=== PATIENT | female | born 1950 | race African-American/Black ===

== ENCOUNTER 2018-11-30 16:12 | Emergency (ER) | payer OTHER ==
[~2018-11-30] VITALS: Ht 172.7 cm; Wt 72.6 kg
[~2018-11-30 16:12] MED LIST: ACETAMINOPHEN-120 ML PO; AZITHROMYCIN 2250 MG PO; DIOVAN40 MG PO; LEXAPRO 10 MG T10 MG PO; PREVACID15 MG PO; PROAIR HFA8.5 GM IH; SYNTHROID25 MCG PO
[2018-11-30] MEDS ORDERED: NORFLEX100 MG PO (17:41)
[2018-11-30] MEDS ORDERED: NORCO 5-325 TA1 EACH PO (17:41)
[2018-11-30] MEDS ORDERED: SENNA-DOCUSATE1 EAC1 PO (17:41)
[2018-11-30 17:43] VITALS: BP 123/82
[2018-11-30] MEDS ORDERED: IBUPROFEN 600600 M1 PO (17:43)
== END 2018-11-30 18:24 | disposition home or self-care (01) ==
LOC: ER 16:12 → EDBD 16:12 → ER 18:24
DX: S39.012A Strain of muscle, fascia and tendon of lower back, initial encounter (principal); I10 Essential (primary) hypertension; Z90.5 Acquired absence of kidney; V89.0XXA Person injured in unspecified motor-vehicle accident, nontraffic, initial encounter; Y93.89 Activity, other specified; Y92.89 Other specified places as the place of occurrence of the external cause; Y99.8 Other external cause status

== ENCOUNTER 2021-12-29 11:11 | Emergency (ER) | payer OTHER ==
[~2021-12-29] VITALS: Ht 167.6 cm; Wt 68.0 kg
[~2021-12-29 11:11] MED LIST changes: +IBUPROFEN 600600 M1 PO; +NORCO 5-325 TA1 EACH PO; +NORFLEX100 MG PO; +SENNA-DOCUSATE1 EAC1 PO
[2021-12-29 12:25] LABS: ABSOLUTE NEUTROPHILS 1.2 thou/uL (1.4-8.2); BASOPHILS 1.9 % (0.0-2.0); EOSINOPHILS 8.5 % (0.0-3.0); HEMATOCRIT 43.2 % (37.0-47.0); HEMOGLOBIN 14.3 gm/dL (12.0-15.0); LYMPHOCYTES 51.4 % (24.0-44.0); MCH 29.4 pg (26.0-34.0); MCHC 33.1 g/dL (28.0-37.0); MCV 88.6 fL (80.0-100.0); MONOCYTES 14.1 % (1.0-8.0); PLATELET COUNT 305 thou/uL (150-400); POLYS 24.1 % (36.0-66.0); RBC 4.88 mil/uL (4.20-5.00); RDW 13.9 % (10.5-14.5); WBC 4.8 thou/uL (4.0-11.0)
[2021-12-29 12:28] LABS: CALCIUM 9.3 mg/dL (8.5-10.1); POTASSIUM 4.5 mmol/L (3.5-5.1)
[2021-12-29 12:38] LABS: ALBUMIN 3.4 g/dL (3.4-5.0); TOTAL BILIRUBIN 0.4 mg/dL (0.2-1.0); TOTAL PROTEIN 7.4 g/dL (6.4-8.2)
[2021-12-29 16:33] VITALS: BP 145/81
[2021-12-29] MEDS ORDERED: ZPAK PO (16:37)
[2021-12-29] MEDS ORDERED: PREDNISONE 20 M20 MG PO (16:37)
[2021-12-29] MEDS ORDERED: ALBUTEROL2.5 MG/31 INH (16:37)
--- NOTE | 2021-12-30 09:56 | EKG ---
[address] [place] [address] ELECTROCARDIOGRAM REPORT Name: SHANIQUE NEAL Room #: [facility]#: [id number] Admission: 12/29/21 Attend Phys: Discharge: 12/29/21 Date of : 48 Report #: [id number] [facility] ED Test Date: 2021-12-29 Test Time: 12:05:21 Pat Name: SHANIQUE NEAL Department: Room: Gender: F Program Medical Director: : 1950 Requested By: Henny Burroughs Order Number: [id number] MD: Stephon Herndon Measurements Intervals [place] Rate: 62 P: 8 MT: 176 QRS: -37 QRSD: 116 T: 7 QT: 427 QTc: 434 Interpretive Statements Sinus rhythm Incomplete RBBB and LAFB Left ventricular hypertrophy Compared to ECG 07/22/2010 23:25:38 Left anterior fascicular block now present Incomplete right bundle-branch block now present Right bundle-branch block now present Left ventricular hypertrophy now present T-wave abnormality no longer present Electronically Signed On 12-30-2021 9:56:22 [employer] by Stephon Herndon [email or web address] <ELECTRONICALLY SIGNED> By: Stephon Herndon MD 12/30/21 [id number] Stephon Herndon MD /[facility]
== END 2021-12-29 16:44 | disposition home or self-care (01) ==
LOC: ER 11:11
PROVIDERS: Nurse Practitioner Family
DX: J40 Bronchitis, not specified as acute or chronic (principal); Z20.822 Contact with and (suspected) exposure to COVID-19; R53.1 Weakness; I10 Essential (primary) hypertension; Z90.721 Acquired absence of ovaries, unilateral; Z79.899 Other long term (current) drug therapy; Z79.2 Long term (current) use of antibiotics